=== PATIENT | male | born 1995 | race African-American/Black ===

== ENCOUNTER 2016-12-12 14:42 | Emergency (ER) | payer BC ==
[~2016-12-12] VITALS: Ht 177.8 cm; Wt 81.3 kg
[2016-12-12 14:45] VITALS: Ht 177.8 cm; Wt 81.3 kg
[2016-12-12] MEDS ORDERED: KETOROLAC TROMETHAMINE 30 MG/ML VIAL IV STA (14:56)
[2016-12-12] MEDS ORDERED: DEXAMETHASONE SOD INJ 10 MG/ML VIAL IV ONE (15:00)
[2016-12-12 15:25] LABS: BASO % 0.3 %; BASO ABS # 0.04 K/uL (0-0.2); COMPLETE YES; EOS % 0.5 %; HEMATOCRIT 45.6 % (42-52); IG% 0.3 %; LYMPH % 13.1 %; LYMPH ABS # 1.56 K/uL (1.2-3.4); MEAN CELL VOLUME 85.4 fL (80-100); MEAN CORPUSCULAR HEMOGLOBIN 27.5 pg (25-34); MEAN CORPUSCULAR HGB CONC 32.2 g/dl (32-36); MEAN PLATELET VOLUME 9.7 fL (7.4-10.4); MONO % 7.8 %; PLATELET COUNT 282 K/uL (130-400); RED BLOOD COUNT 5.34 M/uL (4.7-6.1); WHITE BLOOD COUNT 11.87 K/uL (4.8-10.8)
[2016-12-12] MEDS ORDERED: IBUP-103 PO (15:31)
[2016-12-12 15:43] LABS: BUN/CREATININE RATIO 8.5 (10-20); CALCIUM 9.4 mg/dl (8.5-10.1); CREATININE 1.26 mg/dl (0.60-1.40); POTASSIUM 3.9 mmol/L (3.5-5.1)
[2016-12-12 16:19] VITALS: BP 117/61; PULSE 82; TEMP 37.3; O2SAT 98
[2016-12-12] MEDS ORDERED: AMOXICILLIN/CLAVULANATE TAB 875 MG TAB PO ONE (16:30)
[2016-12-12] MEDS ORDERED: AMOX875T PO (16:34)
[2016-12-12] MEDS ORDERED: METH4PAK PO (16:34)
--- NOTE | 2016-12-12 16:38 | EMERGENCY ROOM VISIT NOTE ---
History First contact with patient: 14:49 Chief Complaint: SORETHROAT Stated Complaint: SORETHROAT History of Present Illness The patient is a 20 year old male who presents to the Emergency Room with complaints of sore throat for one week. The patient was sent here by [facility] for evaluation for possible peritonsillar abscess. The patient states he is able to drink liquids and eat food but it is painful. He states he has been drinking a lot of water and has stayed hydrated. He denies any compromise of his airway. The patient also admits that he has some left-sided neck pain which goes up to his ear. The patient denies any other cold symptoms of runny nose, head congestion, cough or fever. The patient denies any history of mononucleosis. The patient states that it does not hurt to open his mouth. Review of Systems 10 system review was performed and was negative unless stated otherwise history of present illness. Past Medical/Surgical History Asthma, ganglion cyst removal Social History Smoking Status: Never Smoker Alcohol Use: none Drug Use: none Marital Status: single Housing Status: other (his aunt) Occupation Status: employed, [employer] student Current/Historical Medications Scheduled PRN Ibuprofen Tab (Advil), 400 MG PO Q6H PRN for Pain Physical Exam Vital Signs Date Time Temp Pulse Resp B/P (MAP) Pulse Ox O2 Delivery O2 Flow Rate FiO2 12/12/16 16:19 37.3 82 16 117/61 98 Room Air 12/12/16 14:47 99 Room Air 12/12/16 14:45 37.7 100 18 165/66 99 Room Air Physical Exam PHYSICAL EXAM: Vital Signs were reviewed: Temperature 37.7, blood pressure 165/ 66, pulse 100, respiratory rate 18 Reviewed Nurse's notes and agree. Oxygen saturation is 99 % on room air which is normal . GENERAL: 20-year-old male appears in no acute distress. MENTAL STATUS: Alert, oriented, coherent. EARS: Canals clear. TMs good light reflex, no erythema or fluid level noted. NOSE: Nasal mucosa with moderate erythema engorgement. PHARYNX: Patient has erythema and edema of both tonsillar pillars left greater than right. There is white exudate noted. Airway is adequate but tonsils are approximately 2+. NECK: Supple, tender to palpation over both anterior cervical chain with lymphadenopathy noted. No posterior nodes noted. Lymphadenopathy noted. The patient is able to open his mouth without any difficulty. LUNGS: Clear to auscultation without wheezes rales or rhonchi. CARDIAC: Regular rate and rhythm without murmur. SKIN: No rashes noted. T Medical Decision & Procedures Laboratory Results 12/12/16 15:10 Red Blood Count 5.34, Mean Corpuscular Volume 85.4, Mean Corpuscular Hemoglobin 27.5, Mean Corpuscular Hemoglobin Concent 32.2, Mean Platelet Volume 9.7, Neutrophils (%) (Auto) 78.0, Lymphocytes (%) (Auto) 13.1, Monocytes (%) (Auto) 7.8, Eosinophils (%) (Auto) 0.5, Basophils (%) (Auto) 0.3, Neutrophils # (Auto) 9.25, Lymphocytes # (Auto) 1.56, Monocytes # (Auto) 0.93, Eosinophils # (Auto) 0.06, Basophils # (Auto) 0.04 12/12/16 15:10 Test 12/12/16 15:10 White Blood Count 11.87 K/uL (4.8-10.8) Red Blood Count 5.34 M/uL (4.7-6.1) Hemoglobin 14.7 g/dL (14.0-18.0) Hematocrit 45.6 % (42-52) Mean Corpuscular Volume 85.4 fL (80-100) Mean Corpuscular Hemoglobin 27.5 pg (25-34) Mean Corpuscular Hemoglobin Concent 32.2 g/dl (32-36) Platelet Count 282 K/uL (130-400) Mean Platelet Volume 9.7 fL (7.4-10.4) Neutrophils (%) (Auto) 78.0 % Lymphocytes (%) (Auto) 13.1 % Monocytes (%) (Auto) 7.8 % Eosinophils (%) (Auto) 0.5 % Basophils (%) (Auto) 0.3 % Neutrophils # (Auto) 9.25 K/uL (1.4-6.5) Lymphocytes # (Auto) 1.56 K/uL (1.2-3.4) Monocytes # (Auto) 0.93 K/uL (0.11-0.59) Eosinophils # (Auto) 0.06 K/uL (0-0.5) Basophils # (Auto) 0.04 K/uL (0-0.2) RDW Standard Deviation 39.1 fL (36.4-46.3) RDW Coefficient of Variation 12.5 % (11.5-14.5) Immature Granulocyte % (Auto) 0.3 % Immature Granulocyte # (Auto) 0.03 K/uL (0.00-0.02) Anion Gap 8.0 mmol/L (3-11) Est Creatinine Clear Calc Drug Dose 97.4 ml/min Estimated GFR () 95.2 Estimated GFR (Non- 82.1 BUN/Creatinine Ratio 8.5 (10-20) Calcium Level 9.4 mg/dl (8.5-10.1) Monoscreen NEG (NEG) Medications Administered Medications (Trade) Dose Ordered Sig/Collette Route Start Time Stop Time Status Last Admin Dose Admin Dexamethasone Sodium Phosphate (Decadron Inj) 10 mg NOW ONCE IV 12/12/16 15:00 12/12/16 15:01 DC 12/12/16 15:15 10 MG Ketorolac Tromethamine (Toradol Inj) 30 mg NOW STAT IV 12/12/16 14:56 12/12/16 14:59 DC 12/12/16 15:15 30 MG ED Course The patient was evaluated. IV access was obtained. CBC and differential, renal profile was ordered. Mononucleosis was ordered. The patient was given Decadron 10 mg IV, Toradol 30 mg IV. Rapid strep was negative, culture is pending. Labs are reviewed and white count was only slightly elevated at 11, 000. [place] was negative. The patient was independently evaluated by Dr. Peters agreed with treatment plan. He spoke with Dr. Umanzor about the patient and Dr. Umanzor felt that he did not need to see the patient in the emergency room but gave him an appointment for 1:30 tomorrow in his office. The patient was informed of treatment plan and was happy. The patient was given Augmentin 875 mg one tablet by mouth before leaving the ER. The patient was discharged home in stable condition. Medical Decision Differential diagnosis include strep pharyngitis, mononucleosis, peritonsillar abscess Medication Reconcilliation Current Medication List: was personally reviewed by me Blood Pressure Screening Patient's blood pressure: Normal blood pressure Impression Primary Impression: Tonsillitis with exudate Departure Information Dispostion Home / Self-Care Condition GOOD Prescriptions Amoxicillin & Pot Clavulanate (Augmentin 875-125 mg) 1 Tab Tab 1 TAB PO BID for 10 Days, #20 TAB Prov: Lorrie Mcdonald PA-C 12/12/16 Methylprednisolone (MEDROL DOSEPAK) 4 Mg [place] 0 PO DAILY, #1 PKT Prov: Lorrie Mcdonald PA-C 12/12/16 Referrals [facility] (PCP) Nisreen Umanzor M.D. Forms HOME CARE DOCUMENTATION FORM, IMPORTANT VISIT INFORMATION Patient Instructions ED Tonsillitis, My [facility], Sore Throat - [facility] Additional Instructions Push fluids. Take Augmentin as prescribed. Start Medrol Dosepak tomorrow morning. Follow sore throat handouts instructions. Ibuprofen as needed for pain. Appointment tomorrow with Dr. Umanzor at 1:30 pm. [id number] [facility]. [phone]
--- NOTE | 2016-12-14 12:08 | Pharmacy Progress Note ---
ED Pharmacist Culture FollowUp Date of Service: Dec 14, 2016. Patient was sent home with a prescription for Augmentin, which should cover the Group G Strep growing from the patient's throat culture.
== END 2016-12-12 16:45 | disposition home or self-care (01) ==
LOC: C.EDB 14:44 → C.EDA 16:45
DX: J03.90 Acute tonsillitis, unspecified (principal); J45.909 Unspecified asthma, uncomplicated